=== PATIENT | male | born 1935 | race Caucasian/White ===

== ENCOUNTER → 2016-08-13 | Outpatient (CLI) | payer MEDICARE, BC ==
[~2016-08-13] MED LIST: ALAVERT; ASPIRIN EC81 M1 PO; ASPIRIN PO; ASPIRIN81 M1 PO; ATENOLOL PO; CALCIUM 500 + D1 TAB PO; COUMADIN PO; CRESTOR PO; DIGITEK125 MCG PO; DIGOXIN125 MCG PO; FISH OIL 1,0001 CA2 PO; FLOMAX0.4 M1 PO; LEVOTHYROXINE75 MCG PO; LISINOPRIL PO; MULTI-VITAMIN1 EAC1 PO; MULTIVITAMIN1 UDCAP PO; NIACIN PO; NITROGYLCERIN SUBLINGUAL; OMEGA 3 FISH OI1 CAP PO; TENORMIN25 MG PO; VIT E PO; WARFARIN SODIU2.5 M1 PO; ZESTRIL10 M2 PO; ZETIA PO
--- NOTE | ~2016-08-13 | US77 ---
[facility] A Service of [facility] RADIOLOGY TEXT RESULTS PATIENT: HOLLAND RIVERA LOCATION: [facility] : 37 UNIT #: [id number] AGE: [address]: Jean Claude Andrew MD SEX: M ORDER DR: [id number] [facility] [address] [place], [place] [address] [id number] O MR#: [id number] Acc #: [id number] NAME: HOLLAND RIVERA : 1935 SEX: M STUDY DATE/TIME: 08/13/2016 13:00 UNIT: [facility] ROOM: STUDY DESCRIPTION: US Kidney Bilateral Complete Attending Physician: Jean Claude Andrew M.D. Referring Physician: Jean Claude Andrew M.D. Ordering Physician: Jean Claude Andrew M.D. Primary Care Physician: Jean Claude Andrew M.D. MEDICAL IMAGING REPORT This report is preliminary unless electronic signature is present EXAM Renal ultrasound INDICATIONS Urinary retention for the past 6 months. PROCEDURE [place]-scale and Doppler imaging kidneys and bladder. COMPARISON None FINDINGS Right kidney measures 14 cm. Left kidney measures 11.6 cm. No hydronephrosis. Bladder is thin-walled. Pre void bladder volume 210 mL. Post void bladder volume 107 mL. IMPRESSION 1. Significant post void residual of 107 mL. 2. No hydronephrosis. Dictated by... Fidel Gooden M.D. THIS IS AN ELECTRONICALLY VERIFIED REPORT Fidel Gooden M.D. at 08/13/2016 10:23 PM EED/to TD: 08/13/2016 21:13 JOB #: [id number] MEDICAL IMAGING REPORT Page 1 of 1 COPY
== END | disposition home or self-care (01) ==
LOC: CGUS 12:27
DX: R33.9 Retention of urine, unspecified (principal)
CPT/HCPCS: 76770